=== PATIENT | male | born 1970 | race Caucasian/White ===

== ENCOUNTER 2018-01-23 09:31 | Inpatient (IN) | payer OTHER ==
[~2018-01-23] VITALS: Ht 193 cm; Wt 124.8 kg
[2018-01-23] VITALS (9 sets, daily range): BP systolic 124–142; BP diastolic 62–93
[~2018-01-23 09:31] MED LIST: ACULAR 0.5%3 ML OPH; AMOXICILLIN500 M2 PO; AMOXICILLIN500 MG PO; ANAPROX DS550 MG PO; ATARAX25 MG PO; AUGMENTIN 875 M1 TAB PO; CEPHALEXIN500 M1 PO; CIPROFLOXACIN500 MG PO; CLARITIN10 MG PO; CLEOCIN150 MG PO; CLINDAMYCIN HC300 MG PO; DOXYCYCLINE MO100 MG PO; FLOMAX0.4 MG PO; FLONASE 0.05% 121 EA NAS; HYDROCODONE BIT1 T11 PO; IBUPROFEN 30 M800 MG PO; LIDEX 0.05% GEL60 GM T; LYSINE1000 MG PO; MOTRIN600 MG PO; MOTRIN800 MG PO; MYCOLOG CREAM 115 GM T; Motrin,Rufen800 MG PO; NAPROSYN500 MG PO; NKHM; NORCO 325 MG-51 TAB PO; NORCO 5-325 TA1 EACH PO; Orphenadrine C100 MG PO; PEN-VEE K500 MG PO; PENICILLIN-VK500 M1 PO; PREDNICOT20 MG PO; PREDNISONE10 MG PO; ROBITUSSIN AC 110 ML PO; TOBRADEX 0.1%-0.5 ML OPH; TOBREX OPHTH S2.5 ML OPH; TRAMADOL HCL50 MG PO; ULTRAM50 MG PO; VIBRA-TAB100 MG PO; VICO10300 PO; VOLTAREN50 M1 PO; WYMOX500 MG PO; ZOFRAN4 MG PO; ZOVIRAX800 MG PO; ZYRTEC10 MG PO
[2018-01-23 10:05] LABS: BASO % 0.1 % (0.0-1.0); EOS # 0.2 10*3/uL (0.0-0.4); EOS % 1.9 % (1.0-4.0); HEMATOCRIT 51.5 % (42.0-52.0); HEMOGLOBIN 17.3 g/dl (14.0-18.0); LYMPH # 1.3 10*3/uL (1.3-4.4); MEAN CELL VOLUME 86.4 fl (80.0-94.0); MEAN CORPUSCULAR HGB CONC 33.6 g/dl (33.0-37.0); MEAN PLATELET VOLUME 9.3 fl (9.6-12.3); MONO # 0.7 10*3/uL (0.1-1.0); MONO % 7.6 % (3.0-9.0); NEUT # 6.6 10*3/uL (2.3-7.9); NEUT % 75.2 % (47.0-73.0); PLATELET COUNT AUTOMATED 264 10*3/uL (130-400); RED BLOOD COUNT 5.96 10*6/uL (4.50-5.90); RED CELL DISTRI WIDTH 13.2 % (0-14.5); WHITE BLOOD COUNT 8.8 10*3/uL (4.8-10.8)
[2018-01-23 10:22] LABS: ALBUMIN 3.8 gm/dl (3.1-4.5); ALKALINE PHOSPHATASE 125 U/L (45-117); BUN 22 mg/dl (7-24); CHLORIDE 104 mmol/L (98-107); CREATININE 0.98 mg/dL (0.70-1.30); LIPASE 102 U/L (73-393); POTASSIUM 3.9 mmol/L (3.5-5.1); SGOT/AST 21 IU/L (3-35); SGPT/ALT 37 U/L (12-78); SODIUM 135 mmol/L (136-145); TOTAL PROTEIN 8.6 gm/dL (6.4-8.2)
[2018-01-23 10:32] LABS: BILIRUBIN NEGATIVE (NEGATIVE); BLOOD 1+ (NEGATIVE); CLARITY SL CLOUDY (CLEAR); COLOR YELLOW (YELLOW); GLUCOSE NEGATIVE (NEGATIVE); KETONE TRACE (NEGATIVE); LEUKO ESTERASE NEGATIVE (NEGATIVE); NITRITE NEGATIVE (NEGATIVE); PH 5.5 (5.0-9.0); SPECIFIC GRAVITY >= 1.030 (1.005-1.030); UROBILINOGEN 0.2 E.U./dl (0.2-1.0)
[2018-01-23 11:01] LABS: BACTERIA 1+; MUCOUS 2+
[2018-01-23] MEDS ORDERED: LANSOPRAZOLE30 MG PO (15:50)
[2018-01-24] VITALS: BP 133/87
[2018-01-24 06:24] LABS: BASO % 0.2 % (0.0-1.0); EOS # 0.2 10*3/uL (0.0-0.4); EOS % 3.9 % (1.0-4.0); HEMATOCRIT 45.6 % (42.0-52.0); LYMPH # 1.5 10*3/uL (1.3-4.4); LYMPH % 30.1 % (27.0-41.0); MEAN CELL VOLUME 87.9 fl (80.0-94.0); MEAN CORPUSCULAR HGB 28.7 pg (27.0-31.0); MEAN CORPUSCULAR HGB CONC 32.7 g/dl (33.0-37.0); MEAN PLATELET VOLUME 9.2 fl (9.6-12.3); MONO # 0.5 10*3/uL (0.1-1.0); MONO % 9.6 % (3.0-9.0); NEUT # 2.9 10*3/uL (2.3-7.9); PLATELET COUNT AUTOMATED 213 10*3/uL (130-400); RED BLOOD COUNT 5.19 10*6/uL (4.50-5.90); RED CELL DISTRI WIDTH 13.3 % (0-14.5); WHITE BLOOD COUNT 5.1 10*3/uL (4.8-10.8)
[2018-01-24 06:34] LABS: ACT PARTIAL THROMBO TIME 23.4 SECONDS (20.8-31.5)
[2018-01-24 06:40] LABS: HEMOGLOBIN 14.9 g/dl (14.0-18.0)
[2018-01-24 06:49] LABS: BUN 17 mg/dl (7-24); CHLORIDE 107 mmol/L (98-107); CHOLESTEROL 164 mg/dL (<200); CREATININE 0.92 mg/dL (0.70-1.30); FREE T4 0.93 ng/dl (0.76-1.46); HDL CHOLESTEROL 33 mg/dl (40-60); LDL CHOLESTEROL 103 mg/dL (9-159); PHOSPHOROUS 2.7 mg/dL (2.5-4.9); POTASSIUM 3.7 mmol/L (3.5-5.1); SODIUM 140 mmol/L (136-145); TRIGLYCERIDES 140 mg/dl (<150); VLDL CHOLESTEROL 28 mg/dL (6-40)
[2018-01-24 07:47] LABS: VITAMIN D, 25-HYDROXY 14.1 ng/mL (30-100)
[2018-01-24 08:00] VITALS: BP 115/61
[2018-01-24 12:00] VITALS: BP 126/81
[2018-01-24 16:00] VITALS: BP 123/82
[2018-01-24 20:00] VITALS: BP 120/80
[2018-01-25] VITALS: BP 102/63
[2018-01-25 07:02] LABS: BASO % 0.4 % (0.0-1.0); EOS # 0.3 10*3/uL (0.0-0.4); EOS % 4.6 % (1.0-4.0); HEMATOCRIT 42.8 % (42.0-52.0); HEMOGLOBIN 13.8 g/dl (14.0-18.0); LYMPH # 2.2 10*3/uL (1.3-4.4); LYMPH % 39.5 % (27.0-41.0); MEAN CELL VOLUME 88.6 fl (80.0-94.0); MEAN CORPUSCULAR HGB 28.6 pg (27.0-31.0); MEAN CORPUSCULAR HGB CONC 32.2 g/dl (33.0-37.0); MEAN PLATELET VOLUME 9.2 fl (9.6-12.3); MONO # 0.5 10*3/uL (0.1-1.0); MONO % 9.4 % (3.0-9.0); NEUT # 2.6 10*3/uL (2.3-7.9); NEUT % 45.7 % (47.0-73.0); PLATELET COUNT AUTOMATED 208 10*3/uL (130-400); RED BLOOD COUNT 4.83 10*6/uL (4.50-5.90); RED CELL DISTRI WIDTH 13.2 % (0-14.5); WHITE BLOOD COUNT 5.7 10*3/uL (4.8-10.8)
[2018-01-25 07:16] LABS: BUN 12 mg/dl (7-24); CHLORIDE 106 mmol/L (98-107); CREATININE 0.92 mg/dL (0.70-1.30); POTASSIUM 3.8 mmol/L (3.5-5.1); SODIUM 139 mmol/L (136-145)
[2018-01-25 08:15] VITALS: BP 117/74
[2018-01-25] MEDS ORDERED: VITAMIN D-32000 UNIT PO (11:42)
[2018-01-25] MEDS ORDERED: HYDROCODONE-AC1 EAC1 PO (11:44)
[2018-01-25 12:00] VITALS: BP 117/74
== END 2018-01-25 13:13 | disposition home or self-care (01) | DRG 389 ==
LOC: ED 09:31 → EDHOLD 15:27 → 5E 15:27
PROVIDERS: Family Medicine; Nurse Practitioner Family; Student in an Organized Health Care Education/Training Program
DX: K56.600 Partial intestinal obstruction, unspecified as to cause (principal); E87.1 Hypo-osmolality and hyponatremia; K52.9 Noninfective gastroenteritis and colitis, unspecified; D72.9 Disorder of white blood cells, unspecified; D72.810 Lymphocytopenia; E83.41 Hypermagnesemia; R73.9 Hyperglycemia, unspecified; M51.36 Other intervertebral disc degeneration, lumbar region; Z79.899 Other long term (current) drug therapy; Z85.47 Personal history of malignant neoplasm of testis; Z88.5 Allergy status to narcotic agent

== ENCOUNTER 2018-03-31 23:29 | Emergency (ER) | payer OTHER ==
[~2018-03-31] VITALS: Ht 193 cm; Wt 124.7 kg
[~2018-03-31 23:29] MED LIST changes: +HYDROCODONE-AC1 EAC1 PO; +LANSOPRAZOLE30 MG PO; +VITAMIN D-32000 UNIT PO
[2018-03-31] MEDS ORDERED: AUGMENTIN 875875 MG PO (23:47)
== END 2018-03-31 23:58 | disposition home or self-care (01) ==
LOC: ED 23:29
DX: K02.9 Dental caries, unspecified (principal); F17.200 Nicotine dependence, unspecified, uncomplicated; M51.36 Other intervertebral disc degeneration, lumbar region; Z79.899 Other long term (current) drug therapy; Z88.8 Allergy status to other drugs, medicaments and biological substances

== ENCOUNTER 2018-04-08 22:09 | Emergency (ER) | payer BC ==
[~2018-04-08] VITALS: Ht 193 cm; Wt 122.5 kg
--- NOTE | ~2018-04-08 | EKG ---
[place], [place] ELECTROCARDIOGRAM REPORT NAME: ARMIDA SHAW UNIT #: [id number] ROOM: DOCTOR: EPIPHANY DRAFT REPORT BIRTHDATE: [birth year] [facility] Test Date: 2018-04-08 Test Time: 22:37:20 Pat Name: ARMIDA SHAW Department: er Room: 9 Gender: M Math Coach: Tabby Dill : 1970 Requested By: MARTINEZ EAGLE Order Number: [id number] Reading MD: Baldemar Wright MD Measurements Intervals [place] Rate: 116 P: 8 [place]: 161 QRS: 17 QRSD: 95 T: 0 QT: 310 QTc: 431 Interpretive Statements Sinus tachycardia Inferior infarct, old Electronically Signed On 04-09-2018 20:00:59 PST by Baldemar Wright MD CM:EKGRPT:ELECTROCARDIOGRAM REPORT 99 MARTINEZ EAGLE EPIPHANY DRAFT REPORT MARTINEZ EAGLE
[~2018-04-08 22:09] MED LIST changes: +AUGMENTIN 875875 MG PO
[2018-04-08 23:10] LABS: ACT PARTIAL THROMBO TIME 23.9 SECONDS (20.8-31.5); INTERNATIONAL NORM RATIO 0.9 (2.0-3.5)
[2018-04-08 23:15] LABS: ALBUMIN 3.8 gm/dl (3.1-4.5); ALKALINE PHOSPHATASE 109 U/L (45-117); BUN 20 mg/dl (7-24); CHLORIDE 108 mmol/L (98-107); CREATININE 0.96 mg/dL (0.70-1.30); LIPASE 103 U/L (73-393); POTASSIUM 3.8 mmol/L (3.5-5.1); SGOT/AST 32 IU/L (3-35); SGPT/ALT 48 U/L (12-78); SODIUM 136 mmol/L (136-145); TOTAL PROTEIN 8.3 gm/dL (6.4-8.2)
[2018-04-08 23:15] LABS: BASO % 0.5 % (0.0-1.0); EOS % 0.5 % (1.0-4.0); HEMATOCRIT 47.8 % (42.0-52.0); HEMOGLOBIN 16.2 g/dl (14.0-18.0); LYMPH # 0.8 10*3/uL (1.3-4.4); LYMPH % 9.5 % (27.0-41.0); MEAN CELL VOLUME 87.2 fl (80.0-94.0); MEAN CORPUSCULAR HGB 29.6 pg (27.0-31.0); MEAN CORPUSCULAR HGB CONC 33.9 g/dl (33.0-37.0); MEAN PLATELET VOLUME 9.1 fl (9.6-12.3); MONO # 0.4 10*3/uL (0.1-1.0); MONO % 4.6 % (3.0-9.0); NEUT # 7.1 10*3/uL (2.3-7.9); NEUT % 84.8 % (47.0-73.0); PLATELET COUNT AUTOMATED 221 10*3/uL (130-400); RED BLOOD COUNT 5.48 10*6/uL (4.50-5.90); RED CELL DISTRI WIDTH 14.1 % (0-14.5); WHITE BLOOD COUNT 8.3 10*3/uL (4.8-10.8)
[2018-04-08 23:16] LABS: TROPONIN I < 0.015 ng/ml (<0.045)
[2018-04-09] MEDS ORDERED: ONDANSETRON4 MG SL (04:18)
== END 2018-04-09 04:46 | disposition home or self-care (01) ==
LOC: ED 22:09
PROVIDERS: Nurse Practitioner Family
DX: K29.70 Gastritis, unspecified, without bleeding (principal); K52.9 Noninfective gastroenteritis and colitis, unspecified; Z91.018 Allergy to other foods; Z79.2 Long term (current) use of antibiotics

== ENCOUNTER 2018-08-03 08:48 | Emergency (ER) | payer BC ==
[~2018-08-03] VITALS: Ht 193 cm; Wt 122.5 kg
[~2018-08-03 08:48] MED LIST changes: +ONDANSETRON4 MG SL
[2018-08-03] MEDS ORDERED: VALTREX1000 MG PO (09:34)
== END 2018-08-03 09:35 | disposition home or self-care (01) ==
LOC: ED 08:48
DX: A60.01 Herpesviral infection of penis (principal); Z88.8 Allergy status to other drugs, medicaments and biological substances

== ENCOUNTER 2018-09-24 01:34 | Emergency (ER) | payer SELFPAY ==
[~2018-09-24] VITALS: Ht 193 cm; Wt 117.9 kg
[~2018-09-24 01:34] MED LIST changes: +VALTREX1000 MG PO
[2018-09-24] MEDS ORDERED: CLINDAMYCIN HC300 MG PO (01:43)
[2018-09-24] MEDS ORDERED: IBU800 MG PO (01:43)
== END 2018-09-24 01:50 | disposition home or self-care (01) ==
LOC: ED 01:34
DX: K08.89 Other specified disorders of teeth and supporting structures (principal); Z91.018 Allergy to other foods

== ENCOUNTER 2019-03-29 23:23 | Emergency (ER) | payer OTHER ==
[~2019-03-29] VITALS: Ht 193 cm; Wt 127.0 kg
[~2019-03-29 23:23] MED LIST changes: +IBU800 MG PO
== END 2019-03-30 00:35 | disposition left against medical advice (07) ==
LOC: ED 23:23
DX: R11.0 Nausea (principal); R51 Headache; R05 Cough; R09.89 Other specified symptoms and signs involving the circulatory and respiratory systems; Z53.21 Procedure and treatment not carried out due to patient leaving prior to being seen by health care provider

== ENCOUNTER 2019-05-26 11:20 | Emergency (ER) | payer OTHER ==
[~2019-05-26] VITALS: Ht 193 cm; Wt 117.9 kg
[2019-05-26] MEDS ORDERED: PREDNISONE20 M1 PO (11:32)
[2019-05-26] MEDS ORDERED: AMOXICILLIN500 M2 PO (12:56)
[2019-05-26] MEDS ORDERED: ZYRTEC10 M3 PO (12:56)
== END 2019-05-26 13:03 | disposition home or self-care (01) ==
LOC: ED 11:20
DX: J20.9 Acute bronchitis, unspecified (principal); Z88.8 Allergy status to other drugs, medicaments and biological substances; Z79.2 Long term (current) use of antibiotics

== ENCOUNTER 2021-06-21 01:30 | Emergency (ER) | payer SELFPAY ==
[~2021-06-21] VITALS: Ht 193 cm; Wt 122.5 kg
[~2021-06-21 01:30] MED LIST changes: +PREDNISONE20 M1 PO; +ZYRTEC10 M3 PO
[2021-06-21 01:54] LABS: BASO # 0.1 10*3/uL (0.0-0.1); BASO % 0.7 % (0.0-1.0); EOS # 0.2 10*3/uL (0.0-0.4); EOS % 3.3 % (1.0-4.0); HEMATOCRIT 44.6 % (42.0-52.0); LYMPH % 40.7 % (27.0-41.0); MEAN CELL VOLUME 86.4 fl (80.0-94.0); MEAN CORPUSCULAR HGB 29.1 pg (27.0-31.0); MEAN CORPUSCULAR HGB CONC 33.6 g/dl (33.0-37.0); MEAN PLATELET VOLUME 9.4 fl (9.6-12.3); MONO # 0.6 10*3/uL (0.1-1.0); MONO % 8.2 % (3.0-9.0); NEUT # 3.4 10*3/uL (2.3-7.9); PLATELET COUNT AUTOMATED 255 10*3/uL (130-400); RED BLOOD COUNT 5.16 10*6/uL (4.50-5.90); RED CELL DISTRI WIDTH 12.5 % (0-14.5); WHITE BLOOD COUNT 7.3 10*3/uL (4.8-10.8)
[2021-06-21 02:14] LABS: ALKALINE PHOSPHATASE 91 U/L (45-117); BUN 13 mg/dl (7-24); CHLORIDE 109 mmol/L (98-107); CREATININE 0.87 mg/dL (0.70-1.30); SGOT/AST 30 IU/L (3-35); SGPT/ALT 44 U/L (12-78); SODIUM 140 mmol/L (136-145); TOTAL PROTEIN 7.8 gm/dL (6.4-8.2)
[2021-06-21 02:25] LABS: ACT PARTIAL THROMBO TIME 26.5 SECONDS (20.0-32.1); INTERNATIONAL NORM RATIO 0.9 (2.0-3.5)
== END 2021-06-21 05:06 | disposition home or self-care (01) ==
LOC: ED 01:30
PROVIDERS: Emergency Medicine
DX: R00.2 Palpitations (principal); R07.89 Other chest pain; Z79.899 Other long term (current) drug therapy

== ENCOUNTER 2021-09-11 18:44 | Emergency (ER) | payer MEDICAID ==
[~2021-09-11] VITALS: Wt 127.0 kg
[2021-09-11] MEDS ORDERED: KENALOG 0.1%80 GM T (19:12)
== END 2021-09-11 19:26 | disposition home or self-care (01) ==
LOC: ED 18:44
DX: L23.9 Allergic contact dermatitis, unspecified cause (principal)

== ENCOUNTER 2022-11-26 13:45 | Emergency (ER) | payer OTHER ==
[~2022-11-26] VITALS: Ht 193 cm; Wt 117.9 kg
[~2022-11-26 13:45] MED LIST changes: +KENALOG 0.1%80 GM T
[2022-11-26 14:25] LABS: BASO # 0.1 10*3/uL (0.0-0.1); BASO % 0.8 % (0.0-1.0); EOS # 0.2 10*3/uL (0.0-0.4); EOS % 3.4 % (1.0-4.0); HEMATOCRIT 43.8 % (42.0-52.0); LYMPH # 2.9 10*3/uL (1.3-4.4); LYMPH % 49.3 % (27.0-41.0); MEAN CELL VOLUME 87.8 fl (80.0-94.0); MEAN CORPUSCULAR HGB 29.5 pg (27.0-31.0); MEAN CORPUSCULAR HGB CONC 33.6 g/dl (33.0-37.0); MEAN PLATELET VOLUME 9.7 fl (9.6-12.3); MONO # 0.5 10*3/uL (0.1-1.0); MONO % 7.8 % (3.0-9.0); NEUT # 2.3 10*3/uL (2.3-7.9); NEUT % 38.5 % (47.0-73.0); PLATELET COUNT AUTOMATED 247 10*3/uL (130-400); RED BLOOD COUNT 4.99 10*6/uL (4.50-5.90); RED CELL DISTRI WIDTH 13.4 % (0-14.5); WHITE BLOOD COUNT 5.9 10*3/uL (4.8-10.8)
[2022-11-26 14:38] LABS: ACT PARTIAL THROMBO TIME 27.9 SECONDS (20.0-32.1); INTERNATIONAL NORM RATIO 0.9 (2.0-3.5)
[2022-11-26 14:48] LABS: ALKALINE PHOSPHATASE 103 U/L (46-116); BUN 9 mg/dl (9-23); CHLORIDE 106 mmol/L (98-107); POTASSIUM 3.7 mmol/L (3.4-5.1); SGPT/ALT 24 U/L (10-49); TOTAL PROTEIN 7.6 gm/dL (6.0-8.0)
== END 2022-11-26 16:14 | disposition home or self-care (01) ==
LOC: ED 13:45
PROVIDERS: Internal Medicine
DX: R00.2 Palpitations (principal); Z98.890 Other specified postprocedural states

== ENCOUNTER 2023-06-17 04:01 | Emergency (ER) | payer OTHER ==
[~2023-06-17] VITALS: Ht 193 cm; Wt 127.0 kg
[2023-06-17] MEDS ORDERED: ACETAMINOPHEN 325 MG TAB PO ONE (04:30)
[2023-06-17] MEDS ORDERED: TAMIFLU 75MG CA75 MG PO (05:21)
== END 2023-06-17 05:28 | disposition home or self-care (01) ==
LOC: ED 04:01
DX: J10.1 Influenza due to other identified influenza virus with other respiratory manifestations (principal); Z20.822 Contact with and (suspected) exposure to COVID-19; J40 Bronchitis, not specified as acute or chronic; Z98.890 Other specified postprocedural states

== ENCOUNTER 2023-09-11 17:54 | Emergency (ER) | payer OTHER ==
[~2023-09-11 17:54] MED LIST changes: +TAMIFLU 75MG CA75 MG PO
[2023-09-11] MEDS ORDERED: Amoxicillin/Clavulanate Pota 875 MG TAB PO ONE (18:05)
[2023-09-11] MEDS ORDERED: AMOX-CLAV 875-1 EACH PO (18:06)
== END 2023-09-11 18:30 | disposition home or self-care (01) ==
LOC: ED 17:54
DX: K04.7 Periapical abscess without sinus (principal); K02.9 Dental caries, unspecified; Z98.890 Other specified postprocedural states

== ENCOUNTER 2023-10-17 08:14 | Emergency (ER) | payer SELFPAY ==
[~2023-10-17] VITALS: Ht 193 cm; Wt 127.0 kg
[~2023-10-17 08:14] MED LIST changes: +AMOX-CLAV 875-1 EACH PO
[2023-10-17] MEDS ORDERED: PREDNISONE50 MG PO (08:39)
[2023-10-17] MEDS ORDERED: Dexamethasone Sodium Phospha 20 MG/5 ML VIAL IM ONE (08:40)
== END 2023-10-17 09:03 | disposition home or self-care (01) ==
LOC: ED 08:14
DX: L25.9 Unspecified contact dermatitis, unspecified cause (principal); R21 Rash and other nonspecific skin eruption; Z98.890 Other specified postprocedural states

== ENCOUNTER 2023-12-04 16:03 | Emergency (ER) | payer SELFPAY ==
[~2023-12-04] VITALS: Ht 190.5 cm; Wt 127.0 kg
[~2023-12-04 16:03] MED LIST changes: +PREDNISONE50 MG PO
[2023-12-04] MEDS ORDERED: diphenhydrAMINE hydrochloride 50 MG/ML VIAL IV ONE (16:35)
[2023-12-04] MEDS ORDERED: Ketorolac Tromethamine 15 MG/ML VIAL IV ONE (16:35)
[2023-12-04] MEDS ORDERED: SODIUM CHLORIDE 0.9% 1,000 ML IV ONE (16:35)
[2023-12-04] MEDS ORDERED: Metoclopramide Hydrochloride 10 MG/2 ML AMP IV ONE (16:35)
[2023-12-04 16:50] LABS: BASO # 0.1 10*3/uL (0.0-0.1); BASO % 1.1 % (0.0-1.0); EOS # 0.2 10*3/uL (0.0-0.4); EOS % 2.4 % (1.0-4.0); HEMATOCRIT 43.8 % (42.0-52.0); LYMPH # 2.3 10*3/uL (1.3-4.4); LYMPH % 35.5 % (27.0-41.0); MEAN CELL VOLUME 87.6 fl (80.0-94.0); MEAN CORPUSCULAR HGB 28.8 pg (27.0-31.0); MEAN CORPUSCULAR HGB CONC 32.9 g/dl (33.0-37.0); MEAN PLATELET VOLUME 9.3 fl (9.6-12.3); MONO # 0.5 10*3/uL (0.1-1.0); MONO % 7.6 % (3.0-9.0); NEUT # 3.5 10*3/uL (2.3-7.9); NEUT % 53.4 % (47.0-73.0); PLATELET COUNT AUTOMATED 241 10*3/uL (130-400); RED CELL DISTRI WIDTH 13.2 % (0-14.5); WHITE BLOOD COUNT 6.6 10*3/uL (4.8-10.8)
[2023-12-04 17:05] LABS: BUN 13 mg/dl (9-23); CHLORIDE 107 mmol/L (98-107); POTASSIUM 4.2 mmol/L (3.4-5.1)
[2023-12-04] MEDS ORDERED: REGLAN10 M1 PO (17:27)
[2023-12-04] MEDS ORDERED: IBU800 M2 PO (17:27)
== END 2023-12-04 17:43 | disposition home or self-care (01) ==
LOC: ED 16:03
PROVIDERS: Emergency Medicine
DX: R51.9 Headache, unspecified (principal); Z98.890 Other specified postprocedural states

== ENCOUNTER 2023-12-21 05:25 | Emergency (ER) | payer BC ==
[~2023-12-21] VITALS: Ht 193 cm; Wt 128.8 kg
[~2023-12-21 05:25] MED LIST changes: +IBU800 M2 PO; +REGLAN10 M1 PO
[2023-12-21] MEDS ORDERED: AMOXICILLIN500 M2 PO (06:20)
[2023-12-21] MEDS ORDERED: AMOXICILLIN 500 MG CAP PO ONE (06:20)
== END 2023-12-21 06:29 | disposition home or self-care (01) ==
LOC: ED 05:25
DX: K02.9 Dental caries, unspecified (principal); K08.89 Other specified disorders of teeth and supporting structures; E83.41 Hypermagnesemia; E87.1 Hypo-osmolality and hyponatremia; Z98.890 Other specified postprocedural states

== ENCOUNTER → 2023-12-28 | Outpatient (CLI) | payer BC | END | disposition home or self-care (01) | LOC: US 07:30 | PROVIDERS: ATTEND Urology | DX: N50.3 Cyst of epididymis (principal); N28.89 Other specified disorders of kidney and ureter; Z90.79 Acquired absence of other genital organ(s) ==

== ENCOUNTER → 2024-01-20 | Outpatient (CLI) | payer OTHER, BC | END | disposition home or self-care (01) | LOC: RAD 09:04 | PROVIDERS: ATTEND Family Medicine | DX: H57.13 Ocular pain, bilateral (principal); L29.89 Other pruritus ==

== ENCOUNTER 2024-02-13 05:48 | Emergency (ER) | payer BC ==
[~2024-02-13] VITALS: Ht 193 cm; Wt 113.4 kg
[2024-02-13] MEDS ORDERED: AMOXICILLIN500 M2 PO (06:01)
[2024-02-13] MEDS ORDERED: ATENOLOL25 MG PO (06:04)
[2024-02-13] MEDS ORDERED: CEFUROXIME AXE250 MG PO (06:04)
[2024-02-13] MEDS ORDERED: Ketorolac Tromethamine 60 MG/2 ML VIAL IM ONE (06:05)
== END 2024-02-13 06:17 | disposition home or self-care (01) ==
LOC: ED 05:48
DX: K04.7 Periapical abscess without sinus (principal); Z79.899 Other long term (current) drug therapy

== ENCOUNTER 2024-05-21 06:35 | Emergency (ER) | payer BC ==
[~2024-05-21] VITALS: Wt 133.8 kg
[~2024-05-21 06:35] MED LIST changes: +ATENOLOL25 MG PO; +CEFUROXIME AXE250 MG PO
[2024-05-21 07:09] LABS: BASO # 0.1 10*3/uL (0.0-0.1); BASO % 1.3 % (0.0-1.0); EOS # 0.2 10*3/uL (0.0-0.4); EOS % 2.8 % (1.0-4.0); HEMATOCRIT 48.1 % (42.0-52.0); MEAN CELL VOLUME 88.1 fl (80.0-94.0); MEAN CORPUSCULAR HGB 28.6 pg (27.0-31.0); MEAN CORPUSCULAR HGB CONC 32.4 g/dl (33.0-37.0); MEAN PLATELET VOLUME 9.3 fl (9.6-12.3); MONO # 0.5 10*3/uL (0.1-1.0); MONO % 7.6 % (3.0-9.0); NEUT # 2.9 10*3/uL (2.3-7.9); NEUT % 47.4 % (47.0-73.0); PLATELET COUNT AUTOMATED 251 10*3/uL (130-400); RED BLOOD COUNT 5.46 10*6/uL (4.50-5.90); WHITE BLOOD COUNT 6.2 10*3/uL (4.8-10.8)
[2024-05-21 07:19] LABS: ACT PARTIAL THROMBO TIME 27.2 SECONDS (20.0-32.1)
[2024-05-21 07:30] LABS: ALKALINE PHOSPHATASE 110 U/L (46-116); BUN 11 mg/dl (9-23); CHLORIDE 105 mmol/L (98-107); LIPASE 53 U/L (12-53); POTASSIUM 4.1 mmol/L (3.4-5.1); SGPT/ALT 25 U/L (5-49); TOTAL PROTEIN 7.7 gm/dL (6.0-8.0)
[2024-05-21] MEDS ORDERED: MORPHINE Sulfate 2 MG/ML SYR IM ONE (07:50)
[2024-05-21] MEDS ORDERED: Ketorolac Tromethamine 30 MG/ML VIAL IM ONE (08:45)
[2024-05-21] MEDS ORDERED: MELOXICAM15 MG PO (10:18)
== END 2024-05-21 10:34 | disposition home or self-care (01) ==
LOC: ED 06:35
PROVIDERS: Emergency Medicine
DX: M94.0 Chondrocostal junction syndrome [Tietze] (principal); Z98.890 Other specified postprocedural states

== ENCOUNTER 2024-07-30 14:39 | Emergency (ER) | payer BC ==
[~2024-07-30] VITALS: Ht 193 cm; Wt 133.8 kg
[~2024-07-30 14:39] MED LIST changes: +MELOXICAM15 MG PO
[2024-07-30] MEDS ORDERED: PREVACID30 M3 PO (16:04)
[2024-07-30] MEDS ORDERED: PREDNISONE20 M1 PO (16:18)
[2024-07-30] MEDS ORDERED: Dexamethasone Sodium Phospha 20 MG/5 ML VIAL IM ONE (16:20)
== END 2024-07-30 16:37 | disposition home or self-care (01) ==
LOC: ED 14:39
DX: L25.9 Unspecified contact dermatitis, unspecified cause (principal); Z79.899 Other long term (current) drug therapy

== ENCOUNTER → 2024-08-09 | Outpatient (CLI) | payer OTHER, BC ==
[~2024-08-09] MED LIST changes: +PREVACID30 M3 PO
== END | disposition home or self-care (01) ==
LOC: RAD 10:37
PROVIDERS: ATTEND Family Medicine
DX: M51.87 Other intervertebral disc disorders, lumbosacral region (principal); M46.07 Spinal enthesopathy, lumbosacral region

== ENCOUNTER → 2024-12-14 | Outpatient (CLI) | payer BC ==
[~2024-12-14] MED LIST changes: +IOHEXOL 350 MG/ML 100 ML VIAL IV ONE
[2024-12-14 12:48] LABS: BASO # 0.0 10*3/uL (0.0-0.1); BASO % 0.8 % (0.0-1.0); EOS # 0.1 10*3/uL (0.0-0.4); EOS % 1.9 % (1.0-4.0); MEAN CELL VOLUME 85.3 fl (80.0-94.0); MEAN CORPUSCULAR HGB 28.6 pg (27.0-31.0); MEAN PLATELET VOLUME 9.3 fl (9.6-12.3); MONO # 0.4 10*3/uL (0.1-1.0); MONO % 6.7 % (3.0-9.0); NEUT # 2.7 10*3/uL (2.3-7.9); NEUT % 51.3 % (47.0-73.0); NUCLEATED RED BLOOD CELL 0.0 % (0.0-0.0); NUCLEATED RED BLOOD CELL 0.0 10*3/uL (0.0-0.0); PLATELET COUNT AUTOMATED 240 10*3/uL (130-400); RED CELL DISTRI WIDTH 13.7 % (0-14.5)
[2024-12-14 13:21] LABS: BUN 11 mg/dl (9-23); LDH 196 U/L (120-246); SGPT/ALT 37 U/L (5-49)
== END | disposition home or self-care (01) ==
LOC: LAB 11:51 → CT 13:00
PROVIDERS: ATTEND Urology
DX: K76.0 Fatty (change of) liver, not elsewhere classified (principal); N28.1 Cyst of kidney, acquired; J98.11 Atelectasis; J98.4 Other disorders of lung; R31.9 Hematuria, unspecified; C62.90 Malignant neoplasm of unspecified testis, unspecified whether descended or undescended; R53.83 Other fatigue; N50.819 Testicular pain, unspecified; D40.0 Neoplasm of uncertain behavior of prostate; K44.9 Diaphragmatic hernia without obstruction or gangrene; M47.816 Spondylosis without myelopathy or radiculopathy, lumbar region

== ENCOUNTER → 2024-12-25 | Outpatient (CLI) | payer BC ==
[~2024-12-25] MED LIST changes: -IOHEXOL 350 MG/ML 100 ML VIAL IV ONE
== END | disposition home or self-care (01) ==
LOC: US 05:03
PROVIDERS: ATTEND Urology
DX: I86.1 Scrotal varices (principal); N50.89 Other specified disorders of the male genital organs; L72.0 Epidermal cyst; N50.819 Testicular pain, unspecified